=== PATIENT | male | born 1965 | race Caucasian/White ===

== ENCOUNTER → 2024-06-08 10:12 | Outpatient (BNVA) | payer OTHER, SELFPAY | PROVIDERS: Visit Provider Physician Assistant | DX: M25.511 Pain in right shoulder (principal); M75.41 Impingement syndrome of right shoulder | CPT/HCPCS: 20610; 73030; 99203; J3301 ==

== ENCOUNTER 2024-06-24 12:09 | Outpatient (CLI) | payer OTHER, SELFPAY ==
--- NOTE | 2024-06-24 13:00 | MR_ITS ---
WS: [id number] MRI RIGHT SHOULDER NONCONTRAST TECHNIQUE: Sagittal T2, coronal T1, T2 and proton density imaging. Axial gradient PDE imaging. CLINICAL INFORMATION: Rotator cuff impingemnet COMPARISON: None. FINDINGS: Advanced arthritis at the AC joint with small amount edema. Hypertrophic changes at the AC joint. Tiny insertional tear distal supraspinatus. Mild tendinopathy supraspinatus and infraspinatus. Normal teres minor. Subscapularis appears intact. Biceps tendon appears intact within the bicipital groove. Intra- articular biceps tendon appears intact. Moderate degenerative narrowing of the glenohumeral articulation. Normal bone marrow signal in the humeral head and glenoid. MR/MR shoulder RT wo con* [id number] IMPRESSION: 1. Tiny insertional tear distal supraspinatus. Tendinopathy supraspinatus and infraspinatus. 2. Otherwise normal rotator cuff. 3. Advanced degenerative narrowing at the AC joint with hypertrophic changes. 4. Biceps tendon appears intact within the bicipital groove. 5. No other acute findings.
== END 2024-06-24 12:10 | disposition home or self-care (01) ==
LOC: RAD 12:10
PROVIDERS: Visit Provider Physician Assistant
DX: M75.41 Impingement syndrome of right shoulder (principal); M13.811 Other specified arthritis, right shoulder; R93.6 Abnormal findings on diagnostic imaging of limbs
CPT/HCPCS: 73221

== ENCOUNTER → 2024-08-04 09:12 | Outpatient (BNVA) | payer OTHER, SELFPAY | PROVIDERS: Visit Provider Student in an Organized Health Care Education/Training Program | DX: M75.101 Unspecified rotator cuff tear or rupture of right shoulder, not specified as traumatic (principal); Z09 Encounter for follow-up examination after completed treatment for conditions other than malignant neoplasm; M75.41 Impingement syndrome of right shoulder; M75.21 Bicipital tendinitis, right shoulder; M19.011 Primary osteoarthritis, right shoulder | CPT/HCPCS: 99214 ==

== ENCOUNTER 2024-08-19 08:16 | Day surgery (SDC) | payer OTHER, SELFPAY ==
[2024-08-19] VITALS (11 sets, daily range): BP systolic 99–177; BP diastolic 72–99; PULSE 62–79; RESP 16; TEMP 36.3–36.6; O2SAT 95–100; BMI 31.4
--- NOTE | 2024-08-19 08:48 | W.PM.OPSUD ---
Surgery/Procedure H&P Update DATE OF PROCEDURE: August 19, 2024 DATE H&P PERFORMED: 08/04/24 H&P UPDATE INFORMATION: I have reviewed H&P completed within last 30 days, I have examined patient prior to procedure and No changes to prior documentation PREOP DIAGNOSIS: Right shoulder rotator cuff tear, AC joint arthritis, subacromial impingeme PRIMARY INDICATION FOR PROCEDURE: Right shoulder rotator cuff tear, AC joint arthritis, subacromial impingement, biceps tendinitis PLANNED PROCEDURE: Operation Date: 08/19/24 10:10 Proposed Procedures p Right shoulder diagnostic and Shoulder Arthroscopy(Right) - DO loulou Carlton Subacromial Decompression(Right) - DO loulou Carlton acromioclavicular joint resection(Right) - DO loulou Carlton rotator cuff debridment versus repair(Right) - DO loulou Carlton Possible Bicep Tenodesis(Right) - Kenyon Henderson DO
[2024-08-19] MEDS: acetaminophen 1,000 MG/100 ML PIGGYBACK 400 MG IV (09:01)
[2024-08-19] MEDS: ketorolac 30 mg/mL INJ IVP (09:01)
[2024-08-19] MEDS: sodium chloride 0.9% 1,000 ML 30 ML IV (09:03)
--- NOTE | 2024-08-19 09:05 | ANES.PREANE2 ---
Pre-Anesthetic Assessment Height/Weight: Height 1.78 m Weight 99.337 kg O2 Del Method Room Air 08/19/24 08:41 Preop Diagnosis: Right shoulder rotator cuff tear, AC joint arthritis, subacromial impingeme Operation Date: 08/19/24 10:10 Proposed Procedures p Right shoulder diagnostic and Shoulder Arthroscopy(Right) - Kenyon Henderson DO s Subacromial Decompression(Right) - Kenyon Henderson DO s acromioclavicular joint resection(Right) - Kenyon Henderson DO s rotator cuff debridment versus repair(Right) - Kenyon Henderson, DO s Possible Bicep Tenodesis(Right) - Keynon Henderson, DO Familial anesthetic complications: none Was Beta Douglas taken within 24 hours: N/A Was Clonidine taken within 24 hours: N/A Last intake: Intake Last Liquid Date 08/18/24 Last Liquid Time 23:00 Last Solid Date 08/18/24 Last Solid Time 22:00 Social Alcohol and Tobacco 1-1/2 PPD pack(s) per day Drinks at least 2 hard liquor drinks per night Exam alert, oriented x 3, clear to auscultation bilaterally and regular rate & rhythm Airway Submandibular: within normal limits Cervical ROM: within normal limits Mallampati: Class II Dentition: other Comments: Comments: Poor dentition top and bottom. Missing several teeth. History/ROS No significant history except as noted and No significant complaints Pulmonary Exertional Dyspnea and Sleep Apnea CV/HEM Hypertension None reported Hepatic None reported GI Gastroesophageal Reflux Disease Metabolic None reported Musc/skel Lower Back Pain and Weakness States he is disabled. Not active. Neuropsych Anxiety Anesthetic Plan ASA status: 3 Anesthesia: General and Regional (specify below) (Right Shoulder Interscalene block planned.) Risk of > 500 ml blood loss (7ml/kg in children): No Medications/Allergies Home Medications ?Medication ?Instructions ?Recorded ?Confirmed ?Last Taken ?Type cholecalciferol (vitamin D3) 10 10 mcg PO DAILY 08/04/24 08/18/24 08/17/24 History mcg (400 unit) capsule lisinopril 5 mg tablet 5 mg PO DAILY 08/18/24 08/18/24 08/17/24 History omeprazole 40 mg capsule,delayed 40 mg PO DAILY 08/18/24 08/18/24 08/17/24 History release tamsulosin 0.4 mg capsule 0.4 mg PO DAILY 08/18/24 08/18/24 08/17/24 History Allergies Allergy/AdvReac Type Severity Reaction Status Date / Time No Known Allergies Allergy Verified 08/04/24 09:45 Current Medications Generic Name Dose Route Start Last Admin Trade Name Freq PRN Reason Stop Dose Admin Acetaminophen 1,000 mg in 100 mls @ 400 mls/hr 08/19/24 08:53 08/19/24 09:01 Acetaminophen IV 08/19/24 09:07 400 mls/hr ONCE ONE Administration Sodium Chloride 1,000 mls @ 30 mls/hr 08/19/24 09:00 08/19/24 09:03 Sodium Chloride 0.9% IV 08/20/24 08:59 30 mls/hr .Q24H RALPH Administration PFSH Anesthesia Social History Smoking and tobacco/nicotine status: current every day tobacco/nicotine user Data Anesthesia Cardiac Studies: No Data to Display
--- NOTE | 2024-08-19 09:34 | SUR.PREOP ---
09:00 RIGHT INTERSCALENE NERVE BLOCK PERFORMED BY DOCTOR Franco. 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 20ML OF 0.5% ROPIVACAINE WITH 3mg OF DECADRON USED. PT TOLERATED PROCEDURE WELL.
--- NOTE | 2024-08-19 09:35 | ANES.PROC ---
Anesthesia Procedures Procedure/Date: 08/19/24 Nerve Block ^: Nerve Block 1: Main Anesthesia: general anesthesia Time Out Performed: Yes Consent: requested by attending/covering physician, from patient, from other, risks and benefits reviewed and patient agrees to proceed Nerve block location: interscalene (R) Anesthesia monitors applied: pulse oximetry, EKG, BP cuff and oxygen Nerve block position: semi sitting Anesthetic Used: ropivicaine 0.5% (20 ml) and with decadron (3 mg) Ultrasound used to: recognize landmarks, visualize and ID brachial plexus, in supraclavicular region and visualize and ID interscalene groove Nerve Stimulator Used?: No Interscalene/Femoral BLK: 2 stimuplex 22 g needle used for position and inplane approach, visualize local anesthetic spread and no vascular puncture identified Patient Tolerated Procedure: well Complications: none Additional Comments: Performed by Jaya TIM under supervision
[2024-08-19] MEDS: ceFAZolin 2,000 mg SDV 2000 MG IVP (09:42)
[2024-08-19] MEDS: EPINEPHrine 1 mg/mL INJ 2 MG XX (10:28)
--- NOTE | 2024-08-19 11:18 | P.BOP_ITS ---
Date of Procedure:08/19/24 Surgeon: Kenyon Henderson DO Food And Beverage Coordinator(s): Power Henderson PA-C Procedure(s) performed: Right shoulder diagnostic and surgical arthroscopy with rotator cuff repair (small) Right shoulder diagnostic and surgical arthroscopy with biceps tenodesis Right shoulder diagnostic and surgical arthroscopy with labral debridement Right shoulder diagnostic and surgical arthroscopy with subacromial decompression (acromioplasty/bursectomy) Right shoulder diagnostic and surgical arthroscopy with acromioclavicular joint resection (distal clavicle excision) Findings of the procedure(s): Patient found to have small rotator cuff tear as well as bicep tendon tearing at the superior labral complex underwent biceps tenodesis rotator cuff repair subacromial decompression AC joint resection and labral debridement as planned without issues or complications taken back to PACU in stable condition placed in a UltraSling. Estimated blood loss: 5 mL Specimen(s) removed: None Post-operative diagnosis: Right shoulder rotator cuff tear, subacromial impingement, AC joint arthritis, labral tearing, bicep tendon tearing/tendinitis superior labrum
--- NOTE | 2024-08-19 11:21 | PM.OP ---
Operative Report Date of procedure: August 19, 2024 Surgeon: Kenyon Henderson DO Incident Response Manager: Power Henderson PA-C: PA was necessary for assistance in this case with shoulder positioning to execute the procedure, assistance with instrumentation, as well as implant fixation when necessary, assist with wound closure and dressing application. Procedure: Preoperative diagnosis: Right shoulder rotator cuff tear, AC joint arthritis, subacromial impingement, biceps tendinitis Post-op diagnosis: Right shoulder rotator cuff tear, subacromial impingement, AC joint arthritis, labral tearing, bicep tendon tearing/tendinitis superior labrum Procedure done: Right shoulder diagnostic and surgical arthroscopy with rotator cuff repair (small) Right shoulder diagnostic and surgical arthroscopy with biceps tenodesis Right shoulder diagnostic and surgical arthroscopy with labral debridement Right shoulder diagnostic and surgical arthroscopy with subacromial decompression (acromioplasty/bursectomy) Right shoulder diagnostic and surgical arthroscopy with acromioclavicular joint resection (distal clavicle excision) Surgeon: Kenyon Henderson DO Estimated blood loss: 5mL IV fluids: See anesthesia record Implants: Arthrex 4.75 swivel lock Arthrex scorpion and suture tape Arthrex loop and tack biceps tenodesis kit Complications: None Condition: stable Disposition: same day Brief History: Patient been seen and worked up in the outpatient setting for?right?shoulder?pain.? Pt had an MRI which showed findings below.? Patient's failed conservative treatment and has weakness.? We talked about treatment options far as nonoperative and operative intervention.? We talked about risk benefits complication alternatives surgical nonsurgical treatment options.? Understanding risk of surgery he agrees to proceed with surgical intervention.? All questions have been answered at this time.? Patient elects proceed with surgery and consent obtained in preop for Right shoulder diagnostic and surgical arthroscopy with subacromial decompression, acromioclavicular joint resection, rotator cuff debridment versus repair, and possible biceps tenodesis MR/MR shoulder RT wo con* [id number] IMPRESSION: 1. Tiny insertional tear distal supraspinatus. Tendinopathy supraspinatus and infraspinatus. 2. Otherwise normal rotator cuff. 3. Advanced degenerative narrowing at the AC joint with hypertrophic changes. 4. Biceps tendon appears intact within the bicipital groove. 5. No other acute findings. Procedure: Patient seen evaluated in the preoperative holding area.? Consent reviewed and signed with patient.? Once again reviewed patient's MRI results as well as? planned surgical intervention.? Correct extremity marked.? Patient seen evaluated by anesthesia department received regional anesthesia.? Once ready for surgery was taken back to the operative suite.? Patient then subsequently underwent anesthesia per the anesthesia department was transported onto the OR table.? Patient was then placed into a lateral decubitus position with a beanbag and was appropriately secured to the bed.? All bony prominences well-padded.? Patient then had the?right?upper extremity was then prepped and draped in standard orthopedic fashion.? Patient received appropriate preoperative antibiotics.? Final timeout performed. The?right?upper extremity was then held in hanging from traction utilizing sterile technique.? Next started with standard diagnostic and surgical arthroscopy with posterior portal position introduced arthroscope into the glenohumeral joint.? Visualized the glenohumeral joint I then introduced a spinal needle within the rotator cuff interval to confirm appropriate anterior portal placement.? Once this was confirmed I then made my small incision and then introduced my arthroscopic shaver into the glenohumeral joint. After flushing the joint fluid, was clearly evident patient had biceps tendon tearing as well as Superior labral tear. Patient had appreciable unstable biceps anchor most pronounced in the superior labrum. Given his age as well as pain over the long head of the bicep and provocative on examination as well as inflammation and tearing of the superior labral bicep tendon anchor complex plan was for tenodesis. Given there appears to be healthy intra-articular tendon plan was for an intra-articular biceps tenodesis at the superior portion as it enters the intertubercular groove. Thermal wand introduced into the rotator interval. I then release of the rotator interval to have appropriate visualization and the ability to perform biceps tenodesis. At this point I established a purple passport cannula which was introduced. Next I performed an Arthrex loop and tap biceps tenodesis. Passer was then made around the tendon luggage tag stitch around and then thru the tendon per Arthrex protocol. I then utilized a thermal wand to release the biceps tendon at the anchor to perform with tenotomy. I then loaded with suture onto an Arthrex 4.75 swivel lock suture anchor. A punch was then placed in appropriate position at the entry point into the intertubercular groove just superior to the subscapularis tendon. Punch was then introduced to the appropriate depth. The suture loaded on the swivel lock was then advanced held under appropriate tension and shoulder lock anchor was then advanced and had excellent fixation. Excess suture was then cut biceps tenodesis was complete. I then utilized a thermal wand to seal the edges of the superior labrum. Next I evaluated the subscapularis tendon which was intact and no evidence of tear. ?Next there was significant labral tearing at biceps anchor and circumferential.? ? I then subsequently utilized a a arthroscopic shaver and thermal wand to perform a labral debridement.? This point time I then visualized the glenohumeral joint.? The glenohumeral joint was found to have grade 1-2? chondromalacia throughout.? axillary pouch was free of loose bodies from viewing the posterior portal.? Next a visualized the rotator cuff superiorly and there was found to be a small undersurface tearing of the supraspinatus tendon.? I utilized a spinal needle to marco this location.?? This completed my work within the glenohumeral joint all fluid was suctioned free of the joint.? ?Next I reintroduced the arthroscope posteriorly.? And went to the subacromial space.? I established my lateral working portal at the site of which my spinal needle was marking of the rotator cuff tear.? Thermal wand was then introduced laterally and then I subsequently performed extensive bursectomy of the subacromial space.? Patient had a large anterior bone spur.? At this point time I proceeded with my AC joint resection thermal wand was used and track to the anterior edge of the acromion and then tracked all the way to the AC joint.? Once identified the AC joint this was very arthritic in nature.? Thermal wand was placed anteriorly to establish appropriate plane for AC joint resection.? Once appropriate margins and anterior inferior and anterior capsule was released I then introduced arthroscopic shaver and a bur and performed AC joint resection of both the acromion to cope plane at the AC joint and a distal clavicle resection was then performed totaling 1 cm in size and was confirmed.? This completed my AC joint resection and I then introduced the arthroscopic shaver laterally while continuing to view posteriorly.? I then performed an acromioplasty to complete my subacromial decompression prior to fixing the rotator cuff tear.? Next the arthroscopic shaver was then used previous spinal needle spot that is marked the small hole in the rotator cuff this was consistent with a small full-thickness tear.? Given the small size this did not need a medial and lateral row configuration as result my plan was for a horizontal mattress stitch with a single lateral row anchor.? As result I loaded and Arthrex scorpion with fiber tape and subsequently.? A horizontal mattress purchase appropriately spaced to the small tear of the supraspinatus tendon.? At this point in time and then introduced a shaver to debride the rotator cuff footprint and decorticate the footprint in preparation for repair, next I marked by swivel lock position.? Fiber tape was then loaded into a 4.75 swivel lock I then subsequently punched and then subsequently placement 4.75 swivel lock while maintaining appropriate tension and repair of rotator cuff and this was advanced with excellent fixation I then had a final confirmation of appropriate repair of the supraspinatus rotator cuff tendon tear.? Sutures were then cut with an arthroscopic suture cutter and subsequently evaluated the rotator cuff repair.? Repair was found to be satisfactory?shoulder?was taken through range of motion and the repair moved as a unit with no evidence of loss of fixation. ?I then switched the arthroscope to the lateral portal to confirm this tension-free repair.? I took the?shoulder?through range of motion and the rotator cuff repair was stable and moved as a unit. ?Next I then introduced the arthroscopic shaver posteriorly to confirm satisfactory subacromial decompression appropriate all the way up to the lateral edge of the acromion.? This completed the surgery.? All fluid was suctioned from the?shoulder.? All instruments were removed.? The lateral incision was then closed with nylon stitches.? As well as the portal sites closed with portal nylon stitches.? Xeroform 4 x 4's ABD and tape was then applied to the?right?shoulder?and was placed into a?shoulder?abduction pillow sling for rotator cuff repair.? Patient was then awakened from anesthesia and then taken back to PACU in stable condition.? Patient tolerated procedure without any issues. Disposition: Patient taken back in stable condition recovering well.? Dressings on in place clean dry and intact.? Will be nonweightbearing to the?right?upper extremity.? Follow rotator cuff repair protocol.? Patient to follow-up with me in the office in 2 weeks.? Patient will receive appropriate discharge instruction as well as pain medication postoperatively.? All questions answered.? We will contact the office for any questions or concerns.
--- NOTE | 2024-08-19 11:32 | PM.PACU ---
PACU note Narrative: Patient is a 59-year-old male who just underwent a left shoulder arthroscopy. Patient transferred to PACU in stable condition. Pain is well controlled. shoulder Dressing on , dry and in place. Patient's operative arm is in a shoulder immobilizer. Patient was still under anesthesia and not arousable yet. Unable to perform any further exam. Exam: unarousable Disposition: discharged
--- NOTE | 2024-08-19 13:21 | ANE.PACU2 ---
Inpatient post-anesthesia follow up: Airway intact: Yes Vital signs: Temperature 97.9 F Pulse Rate 62 Respiratory Rate 16 Blood Pressure 131/80 Pulse Oximetry 97 Oxygen Delivery Me thod Room Air Oxygen Flow Rate 6 Fraction of Inspir ed Oxygen Hydration adequate: Yes Nausea and vomiting: No Pain level: 1 Mental status: Baseline
== END 2024-08-19 13:35 | disposition home or self-care (01) ==
PROVIDERS: PCP Nurse Practitioner Family; Visit Provider Student in an Organized Health Care Education/Training Program
PROC: (CPT 29805; principal; 2024-08-19 10:10)
PROC: (CPT 29826; 2024-08-19 10:10)
PROC: 0RSG0ZZ Reposition Right Acromioclavicular Joint, Open Approach (ICD-10-PCS; CPT 29827; 2024-08-19 10:10)
PROC: (CPT 29827; 2024-08-19 10:10)
PROC: (CPT 23430; 2024-08-19 10:10)
PROC: (CPT 29827; 2024-08-19 10:10)
DX: M75.101 Unspecified rotator cuff tear or rupture of right shoulder, not specified as traumatic (principal); M17.11 Unilateral primary osteoarthritis, right knee; M75.41 Impingement syndrome of right shoulder; S43.431A Superior glenoid labrum lesion of right shoulder, initial encounter; M75.21 Bicipital tendinitis, right shoulder; K08.89 Other specified disorders of teeth and supporting structures; K21.9 Gastro-esophageal reflux disease without esophagitis; Z79.899 Other long term (current) drug therapy; I10 Essential (primary) hypertension; G47.30 Sleep apnea, unspecified; F17.210 Nicotine dependence, cigarettes, uncomplicated; X58.XXXA Exposure to other specified factors, initial encounter
CPT/HCPCS: 29827; 29828; 29826; 29824; C1713; J0131; J0171; J0690; J1100; J1885; J2250; J2405; J2704; J2795; J3010; J3490; J7030; J9999

== ENCOUNTER → 2024-09-01 10:24 | Outpatient (BNVA) | payer OTHER, SELFPAY | PROVIDERS: PCP Nurse Practitioner Family; Referring Provider Student in an Organized Health Care Education/Training Program; Visit Provider Physician Assistant | DX: Z98.890 Other specified postprocedural states (principal) | CPT/HCPCS: 99024 ==

== ENCOUNTER 2024-09-16 05:00 | Outpatient (RCR) | payer OTHER, SELFPAY | END 2024-10-16 23:59 | disposition home or self-care (01) | LOC: TPT 05:00 | PROVIDERS: Visit Provider Physician Assistant | DX: Z98.890 Other specified postprocedural states (principal) | CPT/HCPCS: 97110; 97140; 97161 ==

== ENCOUNTER → 2024-09-22 13:29 | Outpatient (BNVA) | payer OTHER, SELFPAY | PROVIDERS: PCP Nurse Practitioner Family; Visit Provider Physician Assistant | DX: Z98.890 Other specified postprocedural states (principal) | CPT/HCPCS: 73030; 99024 ==

== ENCOUNTER 2024-10-17 05:00 | Outpatient (RCR) | payer OTHER, SELFPAY | END 2024-11-15 23:59 | disposition home or self-care (01) | LOC: TPT 05:00 | PROVIDERS: Visit Provider Physician Assistant | DX: Z98.890 Other specified postprocedural states (principal) | CPT/HCPCS: 97110; 97140 ==

== ENCOUNTER → 2024-11-03 13:05 | Outpatient (BNVA) | payer OTHER, SELFPAY | PROVIDERS: PCP Nurse Practitioner Family; Visit Provider Physician Assistant | DX: Z98.890 Other specified postprocedural states (principal) | CPT/HCPCS: 99213 ==

== ENCOUNTER 2024-11-16 06:30 | Outpatient (RCR) | payer OTHER, SELFPAY | END 2024-11-29 09:02 | disposition home or self-care (01) | LOC: TPT 06:30 | PROVIDERS: PCP Nurse Practitioner Family; Visit Provider Physician Assistant | DX: Z98.890 Other specified postprocedural states (principal) | CPT/HCPCS: 97110 ==

== ENCOUNTER 2025-01-12 15:12 | Oncology outpatient (recurring) (ONCR) | payer OTHER, SELFPAY ==
--- NOTE | 2024-12-22 09:53 | PC.NURSE ---
Per KERRI Malhotra pt labs are authorized under his AL.
[2024-12-22 10:24] LABS: Hematocrit 43.0 % (37-53); Hemoglobin 14.40 g/dL (11.27-16.99); Mean Corpuscular HGB Conc 33.5 g/dL (30-55); Mean Corpuscular Hemoglobin 31.2 pg (27-33); Mean Corpuscular Volume 93.3 fl (82-101); Nucleated Red Blood Cells % 0 %; Platelet Count 238 10^3/cmm (157-399); Red Blood Count 4.61 10^6/uL (3.85-5.65); White Blood Count 10.23 10^3/uL (3.29-11.43)
[2024-12-22 10:47] LABS: Alanine Aminotransferase 18 U/L (0-41); Albumin Level 4.3 g/dL (3.5-5.2); Alkaline Phosphatase 87 U/L (40-130); Anion Gap 14.9 (5-19); Aspartate Amino Transferase 15 U/L (0-40); Blood Urea Nitrogen 6 mg/dL (6-20); Calcium 9.2 mg/dL (8.5-10.5); Carbon Dioxide 27 mmol/L (22-29); Chloride 104 mmol/L (98-107); Creatinine Clr Calc Pharmacy 86.2118; Globulin 2.8 g/dL (1.3-4.6); Glucose 101 mg/dL (65-115); Osmolality Calculated 292 mOsm/kg (285-295); Potassium 3.9 mmol/L (3.5-5.1); Sodium 142 mmol/L (136-145); Total Protein 7.1 g/dL (6.6-8.7)
[2024-12-23 12:35] LABS: Leukemia Profile (BBPL) See Report
[2024-12-24 23:25] LABS: BCR ABL1 (IS) 0.000 (0.000); BCR ABL1/ALB1 % 0.000 (0.000); P190 BCR ALB1 NOT DETECTED; P190 BCR ALB1 Yes Test Yes; P210 BCR ALB1 NOT DETECTED; P210 BCR ALB1 Yes Test Yes; Source blood
--- NOTE | 2024-12-29 08:00 | CTR_ITS ---
PROCEDURE INFORMATION: Exam: CT Chest With Contrast; Diagnostic Exam date and time: 12/29/2024 8:29 AM Age: 59 years old Clinical indication: Abnormal findings; Abnormal diagnostic tests; Other: Leukocytosis; Prior surgery; Surgery date: 6+ months; Surgery type: Right shoulder TECHNIQUE: Imaging protocol: Diagnostic computed tomography of the chest with contrast. Radiation optimization: All CT scans at this facility use at least one of these dose optimization techniques: automated exposure control; mA and/or kV adjustment per patient size (includes targeted exams where dose is matched to clinical indication); or iterative reconstruction. Contrast material: OMNI 350; Contrast volume: 100 ml; Contrast route: INTRAVENOUS (IV); COMPARISON: CT lung screening [id number] 06/04/2024 10:45 AM RADIATION DOSE METRICS: Total DLP (mGy-cm): 547.67 FINDINGS: Lungs: Mild apical predominant centrilobular pulmonary emphysema. Scattered calcified granulomas. No consolidation. Pleural spaces: Unremarkable. No pneumothorax. No pleural effusion. Heart: Unremarkable. No cardiomegaly. No pericardial effusion. Coronary arteries: Coronary artery calcifications are present. Lymph nodes: Calcified mediastinal and bilateral hilar lymph nodes consistent with prior granulomatous disease. Vasculature: Unremarkable. No aortic aneurysm. Gallbladder and biliary ducts: Multiple gallstones are present in an otherwise normal-appearing gallbladder. No evidence of biliary obstruction. Bones/joints: Unremarkable. No acute fracture. Soft tissues: Unremarkable. CT/CT chest w con* [id number] IMPRESSION: 1. No evidence of acute intrathoracic process. 2. Mild apical predominant centrilobular pulmonary emphysema. 3. Cholecystolithiasis without evidence of cholecystitis or biliary obstruction. COMMENTS: The presence of pulmonary emphysema on CT is an independent risk factor for lung cancer. In the absence of a history or active diagnosis of lung cancer, it is recommended that this patient with emphysema be evaluated for enrollment in a low dose CT lung cancer screening program.
[2024-12-29] MEDS: iohexol 350 mg/mL 500 mL Btl (per mL) IV (08:37)
--- NOTE | 2024-12-29 11:00 | USR_ITS ---
PROCEDURE INFORMATION: Exam: US Abdomen Complete Exam date and time: 12/29/2024 8:43 AM Age: 59 years old Clinical indication: Abnormal findings; Abnormal lab test; Other: Leukocytosis TECHNIQUE: Imaging protocol: Real-time ultrasound of the abdomen with image documentation. Complete exam. COMPARISON: None available. FINDINGS: Liver: The liver demonstrates mildly elevated parenchymal echogenicity, slightly coarsened echotexture, and attenuation of the sound beam. No focal hepatic lesion identified. Gallbladder: Multiple gallstones and sludge. No wall thickening. Biliary ducts: Normal. No stones. No dilation. Pancreas: Visualized pancreas is unremarkable. Right kidney: Renal cortical scarring. No hydronephrosis. 9.8 cm longitudinally. Left kidney: Normal morphology. No hydronephrosis. 11.3 cm longitudinally. Spleen: Normal. No splenomegaly. Aorta: 2.8 cm distal abdominal aortic aneurysm. Inferior vena cava: Normal. US/US abdomen complete* [id number] IMPRESSION: 1. Probable hepatic steatosis. Correlate with liver function tests. 2. Cholecystolithiasis without evidence of acute cholecystitis. 3. Asymmetrically smaller right kidney likely due to chronic scarring. 4. 2.8 cm distal abdominal aortic aneurysm.
== END 2025-01-16 23:59 | disposition home or self-care (01) ==
PROVIDERS: PCP Nurse Practitioner Family; Visit Provider Internal Medicine
DX: D72.829 Elevated white blood cell count, unspecified (principal); F17.210 Nicotine dependence, cigarettes, uncomplicated; Z71.6 Tobacco abuse counseling
CPT/HCPCS: 36415; 71260; 76700; 80053; 81206; 81207; 83615; 85025; 88184; 88185; 99204; 99213

== ENCOUNTER → 2025-02-01 12:59 | Outpatient (BNVA) | payer OTHER, SELFPAY | PROVIDERS: PCP Nurse Practitioner Family; Visit Provider Student in an Organized Health Care Education/Training Program | DX: Z98.890 Other specified postprocedural states (principal) | CPT/HCPCS: 99213 ==